=== PATIENT | female | born 1940 | race Caucasian/White ===

== ENCOUNTER 2016-10-21 08:58 | Day surgery (SDC) | payer MEDICARE, OTHER ==
[~2016-10-21 08:58] MED LIST: ACIPHEX PO; ALBUTEROL0.63 MG/3 INH; ALEGRA; ALLEGRA180 PO; ASAB PO; ASAEC; ASAEC PO; ASTEPRO0.15 % NAS; ATRONASAL3 NAS; ATV.5; ATV.5 PO; AUG875; BREO ELLIPTA INH; CALCIUM PO; CARASPUDL PO; CENTRUM TAB1 TAB PO; CITRACAL PO; CLARIT10 PO; CO Q-10100 MG PO; CO Q-10200 MG PO; COMBIVENT INH; COZ50 PO; CRESTOR5 MG PO; DEXILANT; DIOVAN HCT160 MG/25 PO; ESTRACE VAG0.1 MG/GM; ESTRACE VAGIN42.5 GM V; FIORINALC; FIORINALC PO; FLORASTOR250 MG PO; HALF81 PO; IMDUR30 PO; INCRUSE INH; KAPIDEX60 MG PO; KLOR-CON M2020 MEQ PO; L-LYSINE ACE500 MG PO; L-LYSINE1000 MG OR; L-LYSINE500 M1 OR; LEVAQUIN5T PO; LEVAQUIN750 MG PO; LEVOTHROID75 MCG PO; LEVOTHYROXIN50 MCG PO; LEVOTHYROXIN75 MCG PO; LEXAPRO10 PO; LIPITOR40 PO; MCZ125 PO; MCZ25 PO; MIRALAX POWDER1 PKT PO; MIRALAXPKT PO; MUCO20%4ML; NASONEX NAS; NORV5 PO; P20 PO; P5 PO; PEP20 PO; PEPCID40 MG OR; PRIN5 PO; PROAIR HFA INH; PROAIRRESP INH; PROTONIX PO; PROVHFA INH; RECLAST IV; REG5 PO; SINGULAIR1 PO; SPIRIVA INH; SYMBICORT 160/41 INH INH; SYMBICORT 80/4.1 INH INH; SYN.05 PO; SYN075 PO; TESS PO; TESSALON200 MG PO; TOPAMAX100 PO; TOPAMAX25 PO; VITAMIN D1000 UNI1 PO; VITAMIN D2000 UNIT PO; VITAMIN D31000 UNIT PO; VYTORIN 10/20 T1 TAB PO; X25 PO; ZOVI200CAP PO; ZYRTEC ALLGY10 MG PO
[2016-10-21 09:17] LABS: BASOPHILS 0.2 %; BASOPHILS ABSOLUTE 0.01 10/3/uL (0.0-0.16); EOSINOPHILS 0.3 %; EOSINOPHILS ABSOLUTE 0.02 10/3/uL (0.0-0.53); HEMATOCRIT 42.6 % (36.0-48.0); HEMOGLOBIN 13.9 g/dL (12.0-16.0); IMMATURE GRANULOCYTES 0.5 %; IMMATURE GRANULOCYTES ABSOLUTE 0.03 10/3/uL (0.0-0.11); LYMPHOCYTES 18.8 %; LYMPHOCYTES ABSOLUTE 1.15 10/3/uL (0.67-4.30); MEAN CORPUSCULAR HEMOGLOB 28.6 pg (26.0-34.0); MEAN PLATELET VOLUME 9.1 fL (9.2-13.0); MONOCYTES 13.2 %; MONOCYTES ABSOLUTE 0.81 10/3/uL (0.21-1.20); PLATELET COUNT 230 10/3/uL (150-400); RBC DISTRIBUTION WIDTH 14.6 % (12.0-16.0); RED CELL COUNT 4.86 10/6/uL (4.0-5.6); WHITE BLOOD CELLS 6.1 10/3/uL (4.5-10.5)
[2016-10-21 09:19] LABS: MANUAL DIFF NO %; MEAN CORPUS HGB CONC 32.6 g/dL (32.0-36.0); MEAN CORPUSCULAR VOLUME 87.7 fL (80-100)
[2016-10-21 09:24] LABS: PARTIAL THROMBO TIME 26.5 SEC (22.5-37.2); PROTIME (NOT ORD) 13.2 SEC (12.0-14.5)
[2016-10-21 09:31] LABS: BUN (BLOOD UREA NITROGEN) 17 MG/DL (6-23); CALCIUM, SERUM 8.3 MG/DL (8.5-10.4); CHLORIDE, SERUM 110 MMOL/L (96-112); CO2 (CARBON DIOXIDE) 25 MMOL/L (24-34); CREATININE 1.09 MG/DL (0.55-1.02); GFR AFRICAN AMERICAN 57 ML/MIN (>=60); GFR NON AFRICAN AMERICAN 49 ML/MIN (>=60); GLUCOSE, SERUM 85 MG/DL (60-99); POTASSIUM, SERUM 4.1 MMOL/L (3.5-5.3); SODIUM, SERUM 143 MMOL/L (135-148)
[2016-12-31] MEDS ORDERED: ZOFRAN4 PO (15:17)
[2016-12-31] MEDS ORDERED: PROTONIX PO (15:18)
[2016-12-31] MEDS ORDERED: COZ50 PO (15:23)
== END 2016-10-21 23:59 | disposition home or self-care (01) ==
LOC: DMU 08:58
PROVIDERS: Anesthesiology
DX: Z53.9 Procedure and treatment not carried out, unspecified reason (principal); F03.90 Unspecified dementia, unspecified severity, without behavioral disturbance, psychotic disturbance, mood disturbance, and anxiety; E03.9 Hypothyroidism, unspecified; I10 Essential (primary) hypertension; I25.10 Atherosclerotic heart disease of native coronary artery without angina pectoris; J44.9 Chronic obstructive pulmonary disease, unspecified; J45.909 Unspecified asthma, uncomplicated; M19.90 Unspecified osteoarthritis, unspecified site; K21.9 Gastro-esophageal reflux disease without esophagitis; K58.9 Irritable bowel syndrome, unspecified; M79.7 Fibromyalgia; G43.909 Migraine, unspecified, not intractable, without status migrainosus; K44.9 Diaphragmatic hernia without obstruction or gangrene; F41.9 Anxiety disorder, unspecified; Z90.5 Acquired absence of kidney; Z98.890 Other specified postprocedural states; Z90.710 Acquired absence of both cervix and uterus
CPT/HCPCS: 80048; 85025; 85610; 85730; 93005

== ENCOUNTER 2016-10-27 08:02 | Day surgery (SDC) | payer MEDICARE, OTHER ==
--- NOTE | ~2016-10-27 | EGD ---
EGD REPORT [facility] [address] [address] NAME: HEATHER RODRIGUEZ : 40 STATUS : REG [facility]#: [id number] AGE: 76 ADM/REG DATE : 10/27/16 MR#: [id number] REPORT SERV DATE: 10/27/16 DICTATED BY: YOMAIRA STOCK DATE: 10/27/16 REPORT STATUS : Draft [facility]: [facility] DATE: 10/27/16 Pulmonology Patient Name: Heather Rodriguez Procedure Date: 10/27/2016 11:02 AM Date of : 1940 Attending MD: GLO STOCK MD Procedure Date No Time: 10/27/2016 Procedure: Flexible rigid bronchoscopy Indications: History of lower respiratory tract infection, stent removal Providers: GLO STOCK MD Referring MD: GLO STOCK MD Medicines: Lidocaine 2% 20 mL Complications: No immediate complications Procedure: Pre-Anesthesia Assessment: - ASA Grade Assessment: IV - A patient with severe systemic disease that is a constant threat to life. - A History and Physical has been performed. Patient meds and allergies have been reviewed. The risks and benefits of the procedure and the sedation options and risks were discussed with the patient. All questions were answered and informed consent was obtained. Patient identification and proposed procedure were verified prior to the procedure by the physician and the nurse in the pre-procedure area in the procedure room. Mental Status Examination: normal. Airway Examination: normal oropharyngeal airway. Respiratory Examination: clear to auscultation and poor air movement. CV Examination: normal and RRR, no murmurs, no S3 or S4. ASA Grade Assessment: III - A patient with severe systemic disease. After reviewing the risks and benefits, the patient was deemed in satisfactory condition to undergo the procedure. The anesthesia plan was to use general anesthesia. Immediately prior to administration of medications, the patient was re-assessed for adequacy to receive sedatives. The heart rate, respiratory rate, oxygen saturations, blood pressure, adequacy of pulmonary ventilation, and response to care were monitored throughout the procedure. The physical status of the patient was re-assessed after the procedure. After obtaining informed consent, the Bronchoscope was introduced through the mouth, via the endotracheal tube (the patient was intubated for the procedure) and advanced to the tracheobronchial tree. The procedure was accomplished without difficulty. The patient EGD REPORT [place] [id number] [facility] [place]. [address] NAME: HEATHER RODRIGUEZ FIELDPINA : 40 STATUS : REG [facility]#: [id number] AGE: 76 ADM/REG DATE : 10/27/16 MR#: [id number] REPORT SERV DATE: 10/27/16 DICTATED BY: YOMAIRA STOCK DATE: 10/27/16 REPORT STATUS : Draft TRANSCRIBED BY: [employer] DATE: 10/27/16 tolerated the procedure well. Findings: The endotracheal tube is in good position. The visualized portion of the trachea is of normal caliber. The giorgio is sharp. The tracheobronchial tree was examined to at least the first subsegmental level. LIAM/RBI stent noted with slight overgrowth at the proximal edge. See pictures. Endobronchial lesion noted in the distal right trachea. An endobronchial biopsy was performed in the trachea using a forceps and sent for histopathology examination. One sample was obtained. Brushings were obtained in the trachea and sent for routine cytology. One sample was obtained. Bronchoalveolar lavage was performed in the right lower lobe of the lung and sent for cell count, cytology, bacterial culture, viral smears \T\ culture, and fungal and AFB analysis. 60 mL of fluid were instilled. 30 mL were returned. The return was cellular. The patient was then reintubated with a Rigid Dumon 10 mm bronchoscope. Using the white handle forcep, the right mainstem and RBI silicone stent was grasped and partially intusscepted into the rigid scope. The rigid scope, white handle forceps and stent were removed en bloc. Patient was then reintubated with a LMA. The FiO2 was then lowered to less than 40% and argon plasma coagulation therapy (0.8 ml/min, 15 álvarez) was performed to the area of tissue overgrowth for destruction of tissue. Impression: LIAM/RLL customized silicone stent removed. Recommendation: - Await test results. - Follow up bronchoscopy in 1 month. - Patient can change mandatory nebulizer therapy (albuterol and mucomyst) to PRN only. Attending Participation: I personally performed the entire procedure. GLO STOCK MD 10/27/2016 12:04 PM This report has been signed electronically. Number of Addenda: 0 Note Initiated On: 10/27/2016 11:02 AM [address] [address]
--- NOTE | ~2016-10-27 | CN ---
Consultation Report [place] [address] [place] [address] [facility]: [facility] STAT[facility] : REG [facility] [place] PAT#: [id number] AGE: 76 ADM/REG DATE : 10/27/16 MR#: [id number] REPORT SERV DATE: 10/27/16 DICTATED BY: DAMARI STOCK DATE: 10/27/16 REPORT STATUS : Draft TRANSCRIBED BY: MODHeather DATE: 10/27/16 CONSULTATION DATE OF CONSULTATION: Dear Dr. Dulce Wilkinson: Ms. Heather Rodriguez is a pleasant 76-year-old female with a significant past medical history of right upper lobe adenocarcinoma, status post lobectomy in 2011, complicated by ischemic injury, bronchial stenosis, and staple migration, requiring long-term silicone stent placement, asthma, hypertension, peripheral vascular disease, and subclavian arterial stenosis, and coronary artery disease, who presents to [facility] for formal evaluation for possible stent removal. The patient's stent placement has been tolerated rather well. However, her course has been complicated by lower tract respiratory infections including a multidrug-resistant pseudomonas infection. After careful discussion with regard to the silicone stent placement, a decision was made to trial her without a stent. The patient states that she has continued productive cough that is chronic in nature, not unchanged, mild in nature, well localized to the chest, nonradiating with no significant alleviating or exacerbating factors. REVIEW OF SYSTEMS: A detailed 14-point review of systems was completed. Pertinent positives and negatives are listed above. PAST MEDICAL HISTORY: 1. Right upper lobe lobectomy in 2011, subsequent bronchial stent placement and removal, complicated by stent placement. 2. Asthma. 3. Hypertension. 4. PVD. 5. Carotid arterial stenosis bilaterally. 6. Left subclavian arterial stenosis. 7. Coronary artery disease. 8. Hiatal hernia. 9. GERD. 10.Anxiety. 11.Restless legs syndrome. 12.Migraines. PAST SURGICAL HISTORY: 1. Right upper lobe lobectomy. 2. Bronchial stent placement. Consultation Report [place] [id number] [facility] [place]. [address] NAME: HEATHER RODRIGUEZ : 40 STATUS : REG [facility] PAT#: [id number] AGE: 76 ADM/REG DATE : 10/27/16 MR#: [id number] REPORT SERV DATE: 10/27/16 DICTATED BY: MONTRELLDAMARI DATE: 10/27/16 REPORT STATUS : Draft TRANSCRIBED BY: JOS DATE: 10/27/16 3. Hysterectomy. 4. Trigger finger surgery. FAMILY HISTORY: Heart disease and breast cancer. SOCIAL HISTORY: The patient currently does not smoke, drink alcohol, or abuse illicit drugs. ALLERGIES: COMPAZINE, PHENERGAN, AMARYL, SULFA, CODEINE, OXYCODONE, CELEBREX, AND LEVAQUIN. HOME MEDICATIONS: Reviewed and located in the paper chart. PHYSICAL EXAMINATION: VITAL SIGNS: Reviewed and located in the paper chart. GENERAL: No acute distress. Able to communicate in full paragraphs at a time. HEENT: Normocephalic and atraumatic. Pupils are equal, round, and reactive to light and accommodation. Posterior oropharynx is clear. NECK: No JVD. No LAD. Trachea midline. CARDIOVASCULAR: Regular rate and rhythm. S1 and S2 present. LUNGS: Coarse bilateral breath sounds. ABDOMEN: Nontender. Nondistended. Soft. Positive bowel sounds. EXTREMITIES: No clubbing, cyanosis, or edema. SKIN: No new rashes, lesions, or ulcers. PSYCHIATRIC: Alert and oriented x3. Appropriate mood and affect. Appropriate insight and judgment. NEUROLOGIC: 5/5 strength in the upper and lower extremities. Cranial nerves 2 through 12 intact. Gait not tested. DTRs not performed. IMAGING: Chest x-ray, last performed on 09/08/2016, demonstrates no acute cardiopulmonary disease, status post right upper lobe lobectomy. ASSESSMENT AND PLAN: Ms. Heather Rodriguez is a pleasant 76-year-old female with a significant past medical history of right upper lobe lobectomy for lung cancer, complicated by severe ischemic injury and bronchial stenosis requiring a long-term bronchial stent placement, and stable migration. The patient's stent was placed on 10/14/2016 just over one year ago for severe right mainstem, right bronchial and intermedius bronchus stenosis secondary to prior ischemic injury and staple migration, status post a custom 9 x 30 mm [employer] silicone stent. The patient's course has been rather well tolerated, and complicated by several lower respiratory tract infections including a multidrug-resistant pseudomonas infection requiring outpatient IV antibiotic therapy. The patient has remained compliant with her bronchodilators. At this point, given the one-year interval, we will proceed with stent removal to trial her without the stent. The patient is aware that flexible rigid bronchoscopy and stent removal are associated with potential life-threatening complications including lung collapse, life-threatening bleeding, airway perforation, and even ; other potential injuries including injury to the mouth, Consultation Report [place] [id number] [address] NAME: HEATHER RODRIGUEZ : 40 STATUS : REG [facility] [place] PAT#: [id number] AGE: 76 ADM/REG DATE : 10/27/16 MR#: [id number] REPORT SERV DATE: 10/27/16 DICTATED BY: DAMARI STOCK DATE: 10/27/16 REPORT STATUS : Draft TRANSCRIBED BY: JOS DATE: 10/27/16 lips, teeth, gums, posterior oropharynx, airway fire, and injury to the neighboring organs including C-spine fracture. RECOMMENDATIONS: A summary of my recommendations is as follows: 1. Remove 9 x 30 mm customized [employer] silicone stent. 2. Follow up in one month with repeat bronchoscopy. 3. Further recommendations will be outlined in the operative report. 4. Follow up with Dr. Dulce Wilkinson. Thank you for allowing me to participate in Ms. Rodriguez's care. Sincerely, TALA/JOS Damari Stock M.D. / [id number] CC: Chacho Williamson M.D.
[2016-10-27 17:47] LABS: BD FL LYMPH (NOT ORD) 3 %; BF BASO (NOT OF) 0 %; BF LARGE MONONUCLEAR 14 %; BODY FLUID EOS (NOT ORD) 0 %; BODY FLUID SEG (NOT ORD) 83 %
[2016-10-27 17:48] LABS: BD FL SOURCE (NOT ORD) RLL-BAL; BF TOTAL CELL CT (NOT ORD 668 /MM3; BODY FLUID RBC (NOT ORD) 6000 /MM3
[2016-12-31] MEDS ORDERED: ZOFRAN4 PO (15:17)
[2016-12-31] MEDS ORDERED: PROTONIX PO (15:18)
[2016-12-31] MEDS ORDERED: COZ50 PO (15:23)
== END 2016-10-27 23:59 | disposition home or self-care (01) ==
LOC: DMU 08:02
PROVIDERS: Internal Medicine
PROC: 0BB18ZX Excision of Trachea, Via Natural or Artificial Opening Endoscopic, Diagnostic (ICD-10-PCS; 2016-10-27)
PROC: 0BB18ZX Excision of Trachea, Via Natural or Artificial Opening Endoscopic, Diagnostic (ICD-10-PCS; principal; 2016-10-27 09:30)
PROC: 0B9F8ZX Drainage of Right Lower Lung Lobe, Via Natural or Artificial Opening Endoscopic, Diagnostic (ICD-10-PCS; 2016-10-27 09:30)
PROC: 0BCF8ZZ Extirpation of Matter from Right Lower Lung Lobe, Via Natural or Artificial Opening Endoscopic (ICD-10-PCS; 2016-10-27 09:30)
PROC: 0BC58ZZ Extirpation of Matter from Right Middle Lobe Bronchus, Via Natural or Artificial Opening Endoscopic (ICD-10-PCS; 2016-10-27 09:30)
DX: J98.09 Other diseases of bronchus, not elsewhere classified (principal); J44.1 Chronic obstructive pulmonary disease with (acute) exacerbation; J45.909 Unspecified asthma, uncomplicated; I10 Essential (primary) hypertension; I73.9 Peripheral vascular disease, unspecified; I25.10 Atherosclerotic heart disease of native coronary artery without angina pectoris; K44.9 Diaphragmatic hernia without obstruction or gangrene; K21.9 Gastro-esophageal reflux disease without esophagitis; F41.9 Anxiety disorder, unspecified; G25.81 Restless legs syndrome; G43.909 Migraine, unspecified, not intractable, without status migrainosus; Z90.710 Acquired absence of both cervix and uterus; Z88.2 Allergy status to sulfonamides; Z88.5 Allergy status to narcotic agent; Z88.8 Allergy status to other drugs, medicaments and biological substances; Z90.89 Acquired absence of other organs
CPT/HCPCS: 71010; 80048; 85025; 85610; 85730; 87015; 87070; 87077; 87102; 87116; 87186; 87205; 88112; 88305; 88312; 89051; A9270-GY; C1757; J2405; J3010

== ENCOUNTER 2016-10-29 15:46 | Inpatient (IN) | payer MEDICARE, OTHER ==
--- NOTE | ~2016-10-29 | CN ---
Consultation Report [facility] [address] [place]. [address] NAME: HEATHER RODRIGUEZ : 40 STATUS : ADM IN PAT#: [id number] AGE: 76 ADM/REG DATE : 10/29/16 MR#: [id number] REPORT SERV DATE: 10/30/16 DICTATED BY: COSME PRESTON DATE: 10/30/16 REPORT STATUS : Draft TRANSCRIBED BY: MODL DATE: 10/30/16 INFECTIOUS DISEASE CONSULT DATE OF CONSULTATION: 10/30/2016 REASON FOR CONSULT: Pseudomonas in bronchial secretions and "fungus ball" in the trachea or tracheal wall. HISTORY OF PRESENT ILLNESS: This is a 76 years old white lady with history of asthma who was diagnosed with right upper lobe adenocarcinoma in 2011. She had a right upper lobe lobectomy at [place], complicated by ischemic injury of the right airway or bronchial tree. That left her with bronchial stenosis. Stent was put in the past and was changed later to a silicone stent. The stent apparently was tolerated well but she had recurrent respiratory infections with Pseudomonas. I noticed sputum culture in July of this year as well as in March of last year that grew Pseudomonas. In July, this was resistant to Cipro and had GWYN of 8 to cefepime but it was sensitive to Zosyn, aztreonam, tobramycin, and gentamicin. I noticed that in July 2015, she had a bronchoscopy where a "staple line migration" was noted. At the time of the bronchoscopy, there is a right upper lobe endobronchial lesion that on biopsy showed fungal organisms consistent with Aspergillus. In October 2015 also, bronchoscopy was done, and a cytology or pathology from "staple debris" also showed Aspergillus like organisms. She had endoscopy on 27 of October so few days ago for stent removal. Dr. Gaona noticed an endobronchial lesion in the distal right trachea that he biopsied by forceps. He also performed a right lower lobe bronchoalveolar lavage and removed the stent. The BAL culture grew 10,000 colonies of Pseudomonas with same sensitivities resistant to Cipro and the cefepime GWYN of 8. The cytology was negative for malignancy. The white blood cell count was 668 with 83% segments. This endobronchial "node" biopsy showed a "fungus ball." I discussed with Dr. Vanegas in Pathology and she tells me all that sees, there is fungus that looks like Aspergillus but there is no other airway wall tissue so there is no way to tell if there is any invasion, vascular invasion. Unfortunately, she presented last night with a completely collapsed remaining right lung, mediastinal shift. The patient is hard of hearing, and it is hard to tell if she had any acute symptoms. She presented with shortness of breath. She states she never had a fever. It is unclear if she had any progressive cough or sputum production. She has not had any chills. She has problems with constipation and acid reflux or gastroesophageal reflux. No acute urinary symptoms although she urinates frequently. A CT scan showed a right lung collapse and hyperinflation of the left lung with mediastinal shift to the right. Consultation Report [facility] [address] [facility] [place]. [address] NAME: HEATHER RODRIGUEZ : 40 STATUS : ADM IN [facility]#: [id number] AGE: 76 ADM/REG DATE : 10/29/16 MR#: [id number] REPORT SERV DATE: 10/30/16 DICTATED BY: COSME PRESTON DATE: 10/30/16 REPORT STATUS : Draft TRANSCRIBED BY: JOS DATE: 10/30/16 Lab work showed a procalcitonin of less than 0.05. ABGs; PO2 was 55, saturation 97% but cannot tell on how much oxygen. She was started on aztreonam and vancomycin. This morning, she had a bronchoscopy, and a new silicone stent was placed in the right mainstem bronchus. Dr. Gaona describes debulking some tissue and granulation tissue overlying the right middle lobe bronchus. There are some thick secretions there. He did a BAL from the right lower lobe and dilatation of the right main stem before the stent placement. Lab work today creatinine 0.7. Liver enzymes within normal limits. WBC 7 down from 11 yesterday. PAST MEDICAL HISTORY: As I mentioned above plus hypertension, peripheral vascular disease with carotid disease and subclavian vein stenosis, coronary artery disease, migraine headaches, restless legs. She has a history of asthma, and she follows with Dr. Mcmillan who is an tip inserter. Apparently, she has some immune-deficiency, and she is supposed to get some kind of medications but she could not remember the name. We tried to get records from Dr. Mcmillan but that is not possible until next week. Also hysterectomy. She has oral mucosa lichen planus but she does not know what treatment she received for it. It sounds like it is some topical treatment. FAMILY HISTORY: Cancer and heart disease. SOCIAL HISTORY: She quit smoking. Lives alone with the help of a sitter. ALLERGIES: SULFA CAUSED TONGUE SWELLING. SHE STATES LEVAQUIN CAUSED THE RASH BUT ONLY THE 750 MG TABLETS. SHE STATES THAT THE 250 AND 500 MG TABLETS ARE OKAY. MEDICATIONS: At admission according to the chart, topiramate, levothyroxine, Symbicort, aspirin, Crestor, Singulair, Lexapro prednisone 5 mg a day, albuterol, isosorbide extended release, butalbital as needed, meclizine as needed, losartan, amlodipine, Protonix, lorazepam as needed, and Pepcid. PHYSICAL EXAMINATION: GENERAL: On exam, she is small, hard of hearing. Alert. She coughs frequently. She has some hemoptysis. LUNGS: With decreased sounds throughout but no real wheezing or crackling. HEART: Regular rhythm. ABDOMEN: Soft. SKIN: With some bruising. Consultation Report [address] [place]. [address] NAME: HEATHER RODRIGUEZ : 40 STATUS : ADM IN [facility]#: [id number] AGE: 76 ADM/REG DATE : 10/29/16 MR#: [id number] REPORT SERV DATE: 10/30/16 DICTATED BY: COSME PRESTON DATE: 10/30/16 REPORT STATUS : Draft TRANSCRIBED BY: JOS DATE: 10/30/16 HEENT: Oral mucosa with large red patches on the left lateral and posterior. IMAGING: CT of the chest with this admission collapsed right lung, but no infiltrate in the left lung. ASSESSMENT AND PLAN: 1. The patient with right upper lobe lobectomy for adenocarcinoma, right mainstem stenosis previously requiring a stent and history of asthma on chronic low-dose prednisone who was admitted with right lung complete atelectasis. She had a bronchoscopy and a new stent placed today. 2. 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 3. She has an endotracheal "node" which on biopsy shows a "fungus ball." Unfortunately, the biopsy sample does not include the underlying tracheal wall tissues so cannot really evaluate for invasive fungus disease. Also, there is no infiltrate in the left lung. 4. Possible immunodeficiency. We will try to get records from Dr. Mcmillan. 5. Gastroesophageal reflux and history of hiatal hernia. The Pseudomonas colony count was low. It appears that she is colonized in her airway with this organism. I do not think we have clear evidence of acute infection from it. However, given the recent bronchoscopies, removal of old stent, placement of new stent I think we should give antibiotics at this time. More cultures were obtained today, and those are obviously pending. She is already on aztreonam which we will continue for the Pseudomonas. We will add voriconazole for this Aspergillus although again we do not have proof of invasive disease, and we will try to see if we can obtain more information. In order to try to prevent future infections, I discussed with the patient and her daughter about ways to prevent gastroesophageal reflux. I asked her to sit up for 2-3 hours after eating, drinking, or taking medications and not to sleep with her bed flat or after drinking or eating. Also, I would suggest improving clearance of respiratory secretions and that might include Mucomyst but also postural drainage. Decrease immunosuppression if possible by taking IV immunoglobulins if needed and maybe try to taper off or decrease the chronic prednisone dose. In the future, one could consider using inhaled antibiotics such as tobramycin or aztreonam for treatment of bronchial infections instead of taking systemic antibiotics. I discussed with the patient, her daughter, and discussed with Dr. Gibson. PC/JOS Cosme Preston M.D. Consultation Report [address] [address] NAME: HEATHER RODRIGUEZ : 40 STATUS : ADM IN [facility]#: [id number] AGE: 76 ADM/REG DATE : 10/29/16 MR#: [id number] REPORT SERV DATE: 10/30/16 DICTATED BY: COSME PRESTON DATE: 10/30/16 REPORT STATUS : Draft TRANSCRIBED BY: MODL DATE: 10/30/16 / [id number] CC: Chacho Pelletier M.D.
--- NOTE | ~2016-10-29 | CN ---
Consultation Report [facility] [address] [place]. [address] NAME: HEATHER RODRIGUEZ : 40 STATUS : ADM IN PAT#: [id number] AGE: 76 ADM/REG DATE : 10/29/16 MR#: [id number] REPORT SERV DATE: 10/30/16 DICTATED BY: DAMARI STOCK DATE: 10/29/16 REPORT STATUS : Draft TRANSCRIBED BY: MODL DATE: 10/29/16 CONSULTATION REPORT DATE OF CONSULTATION: Dear Dr. Criselda Gibson: Thank you for requesting my opinion regarding evaluation and management of Ms. Heather Rodriguez's respiratory failure, status post stent removal. Ms. Heather Rodriguez is an extremely pleasant 76- year-old female, well known to me with a significant past medical history of right upper lobe adenocarcinoma, status post lobectomy at [facility] in 2011 complicated by right mainstem and right bronchus intermedius ischemic injury, bronchial stenosis, staple migration requiring long-term silicon stent placement, status post removal on 10/27/2016, asthma, hypertension, peripheral vascular disease, and subclavian artery stenosis who presents to [facility] with worsening shortness of breath, dyspnea on exertion, and hypoxic respiratory failure. The patient is now sedated on Precedex and is unable to participate in the exam. Cesar, her harness preparer, states that she was initially improved postprocedure, but over the past 24 to 48 hours, became increasingly short of breath, dyspneic, and anxious to the point that she found it difficult to even walk a few steps. The patient has recently been evaluated by the Critical Care Team by Dr. Criselda Gibson and I have been requested to evaluate her for possible emergent procedure and triage planning. REVIEW OF SYSTEMS: A detailed 14-point review of systems could not be completed due to the patient's sedation on Precedex. PAST MEDICAL HISTORY: 1. Right upper lobe lobectomy in 2011 and subsequent bronchial stent placement and removal. 2. Asthma. 3. Hypertension. 4. Peripheral vascular disease. 5. Carotid arterial stenosis bilaterally. 6. Left subclavian arterial stenosis. 7. Coronary artery disease. 8. Hiatal hernia. 9. GERD. 10.Anxiety. 11.Restless legs syndrome. 12.Migraines. PAST SURGICAL HISTORY: 1. Right upper lobe lobectomy, multiple flexible rigid bronchoscopies for bronchial stent placement and recent removal on 10/27/2016. Consultation Report [place] [address] [place]. [address] NAME: HEATHER RODRIGUEZ : 40 STATUS : ADM IN [facility]#: [id number] AGE: 76 ADM/REG DATE : 10/29/16 MR#: [id number] REPORT SERV DATE: 10/30/16 DICTATED BY: DAMARI STOCK DATE: 10/29/16 REPORT STATUS : Draft TRANSCRIBED BY: JOS DATE: 10/29/16 2. Hysterectomy. 3. Trigger finger surgery. FAMILY HISTORY: Heart disease and breast cancer. SOCIAL HISTORY: The patient is a lifelong nonsmoker. She denies any significant history of alcohol or illicit drug abuse. ALLERGIES: COMPAZINE, PHENERGAN, AMARYL, SULFA, CODEINE, OXYCODONE, CELEBREX, AND LEVAQUIN. HOME MEDICATIONS: Reviewed and located in the paper chart. PHYSICAL EXAMINATION: VITAL SIGNS: Blood pressure 112/59, heart rate of 71, saturations of 94% on 40 liters on 100% FiO2 on Vapotherm. GENERAL: The patient is currently sedated, on Precedex, and able to respond to simple questions, but unable to participate in a lengthy discussion of these events preceding her arrival. The patient appears to be comfortable at this moment. HEENT: Normocephalic and atraumatic. Pupils are equal, round, and reactive to light and accommodation. Posterior oropharynx is clear. NECK: No JVD. No LAD. Trachea midline. CARDIOVASCULAR: Regular rate and rhythm. S1 and S2 present. LUNGS: Diminished breath sounds on the right. Dullness to percussion at the right base. ABDOMEN: Nontender, nondistended, and soft. Positive bowel sounds. EXTREMITIES: No clubbing, cyanosis, or edema. SKIN: No new rashes, lesions, or ulcers. PSYCHIATRIC: Sedated on Precedex. NEUROLOGIC: Moving all four extremities. LABORATORY DATA: BNP of 57.5. Chemistries: Creatinine of 0.99, sodium of 142, potassium 3.1, chloride of 110, bicarb of 24, BUN of 16, and creatinine of 0.99. CBC: White count of 11, hemoglobin of 14, and platelet count of 186. ABG demonstrates a pH of 7.4, PaCO2 of 32, PaO2 of 55 on an unclear amount of oxygen. BAL demonstrated 10,000 colonies of multidrug-resistant Pseudomonas. AFB cultures negative. BAL fluid demonstrates a neutrophilic predominance with 83% neutrophils and 14% mononuclear cells. Chest x-ray on 10/27/2016 was personally reviewed by me postprocedure that demonstrates no acute cardiopulmonary abnormality and status post stent removal with no pneumothorax. Repeat chest x-ray today on 10/29/2016 demonstrates significant volume loss with Consultation Report [place] [id number] [place]. [address] NAME: HEATHER RODRIGUEZ FIELDPINA : 40 STATUS : ADM IN PAT#: [id number] AGE: 76 ADM/REG DATE : 10/29/16 MR#: [id number] REPORT SERV DATE: 10/30/16 DICTATED BY: DAMARI STOCK DATE: 10/29/16 REPORT STATUS : Draft TRANSCRIBED BY: MODL DATE: 10/29/16 consolidation in the right lung and shift of the heart and mediastinum to the right. There are also chronic changes consistent with COPD and a tortuous aorta. Surgical clips are present along the right superior mediastinum consistent with a history of right upper lobe lobectomy in 2011. ASSESSMENT AND PLAN: Ms. Heather Rodriguez is an extremely pleasant 76-year-old female, well known to me with a significant past medical history of major complex airways disease, stemming from a right upper lobe lobectomy in 2011 complicated by severe ischemic injury and airway necrosis, status post multiple flexible rigid bronchoscopies with long-term airway silicone stenting and recent removal of a custom 9 x 30 mm [employer] silicone stent on 10/27/2016. The patient now presents with fulminant hypoxic respiratory failure and chest x-ray on 10/29/2016 demonstrated volume loss and consolidation in the right lung with shift of the heart and mediastinum to the right. The patient's bronchoscopy also demonstrated 10,000 colonies of multidrug-resistant Pseudomonas as well as an Aspergillus fungal nodule noted in the distal right aspect of the trachea. At this point, the patient will require aggressive medical optimization of her blood pressure and may require intubation. I agree with transfer to the Critical Care Service. In addition, I recommend the following to better delineate the underlying causes of her shortness of breath, optimize her medical status, and then we will re-evaluate for possible flexible rigid bronchoscopy and airway stentin. Start vancomycin and aztreonam first dose stat. 2. Pharmacy to dose. 3. I already (spoke with pharmacist, Terri, in the ED). 4. PICC line. 5. Stat CT scan of the chest with contrast. 6. N.p.o. after midnight. 7. ID consult for multidrug-resistant Pseudomonas and Aspergillus and airway nodules noted at the time of bronchoscopy. 8. If the patient requires flexible rigid bronchoscopy, I will speak with the power of school superintendent and coordinate the plan with the Critical Care Service. Flexible rigid bronchoscopy is associated with potential life-threatening risks, including lung collapse, respiratory failure, perforation of the airway and also injury to the mouth, lips, teeth, gums, posterior oropharynx, trachea, and the neighboring organs. Other potential possibilities include cardiopulmonary arrest and even . Thank you for allowing me to participate in Ms. Heather Rodriguez's care. TALA/JOS Damari Stock M.D. / [id number] Consultation Report [address] [address] NAME: HEATHER RODRIGUEZ : 40 STATUS : ADM IN [facility]#: [id number] AGE: 76 ADM/REG DATE : 10/29/16 MR#: [id number] REPORT SERV DATE: 10/30/16 DICTATED BY: DAMARI STOCK DATE: 10/29/16 REPORT STATUS : Draft TRANSCRIBED BY: JOS DATE: 10/29/16 CC: Chacho Pelletier M.D.
--- NOTE | ~2016-10-29 | EGD ---
EGD REPORT [facility] [address] [address] NAME: HEATHER RODRIGUEZ : 40 STATUS : ADM IN PAT#: [id number] AGE: 76 ADM/REG DATE : 10/29/16 MR#: [id number] REPORT SERV DATE: 10/30/16 DICTATED BY: YOMAIRA STOCK DATE: 10/30/16 REPORT STATUS : Draft TRANSCRIBED BY: [facility] DATE: 10/30/16 Pulmonology Patient Name: Heather Rodriguez Procedure Date: 10/30/2016 7:24 AM Date of : 1940 Attending MD: GLO STOCK MD Procedure Date No Time: 10/30/2016 Procedure: Flexible rigid bronchoscopy Indications: Right lung atalectasis s/p LIAM/RBI stent removal Providers: GLO STOCK MD Referring MD: MOON DENNIS MD Medicines: Lidocaine 2% 20 mL Complications: No immediate complications Procedure: Pre-Anesthesia Assessment: - A History and Physical has been performed. Patient meds and allergies have been reviewed. The risks and benefits of the procedure and the sedation options and risks were discussed with the patient. All questions were answered and informed consent was obtained. Patient identification and proposed procedure were verified prior to the procedure by the physician and the nurse in the pre-procedure area in the procedure room. Mental Status Examination: normal. Airway Examination: normal oropharyngeal airway. Respiratory Examination: poor air movement and decreased breathe sounds at right base, but otherwise clear. CV Examination: normal and RRR, no murmurs, no S3 or S4. ASA Grade Assessment: IV - A patient with severe systemic disease that is a constant threat to life. After reviewing the risks and benefits, the patient was deemed in satisfactory condition to undergo the procedure. The anesthesia plan was to use general anesthesia. Immediately prior to administration of medications, the patient was re-assessed for adequacy to receive sedatives. The heart rate, respiratory rate, oxygen saturations, blood pressure, adequacy of pulmonary ventilation, and response to care were monitored throughout the procedure. The physical status of the patient was re-assessed after the procedure. - ASA Grade Assessment: IV - A patient with severe systemic disease that is a constant threat to life. After obtaining informed consent, the Bronchoscope was introduced through the mouth, via the endotracheal tube (the patient was intubated for the procedure) and advanced to the tracheobronchial tree. The procedure was accomplished without difficulty. The patient EGD REPORT [address] [address] NAME: HEATHER RODRIGUEZ : 40 STATUS : ADM IN [facility]#: [id number] AGE: 76 ADM/REG DATE : 10/29/16 MR#: [id number] REPORT SERV DATE: 10/30/16 DICTATED BY: YOMAIRA STOCK DATE: 10/30/16 REPORT STATUS : Draft TRANSCRIBED BY: [facility] DATE: 10/30/16 tolerated the procedure well. Findings: The endotracheal tube is in good position. The visualized portion of the trachea is of normal caliber. The giorgio is sharp. Previous nodularity along the distal right trachea was not noted. The tracheobronchial tree was examined to at least the first subsegmental level. There was auto-amputation of LIAM/RBI obstruction. Using swing jaw forceps and carlos balloon number 4, I debulked necrotic appearing tissue and granulation tissue overlying the LIAM. Therapeutic aspiration of thick secretions was performed. Bronchoalveolar lavage was performed in the right lower lobe of the lung and sent for cell count, cytology, bacterial culture, viral smears \T\ culture, and fungal and AFB analysis. 120 mL of fluid were instilled. 30 mL were returned. The return was cellular. Brushings were obtained in the right mainstem bronchus of the lung and sent for routine cytology and bacterial, AFB and fungal analysis. Two samples were obtained. The FiO2 was lowered to less than 40% and I performed micro-cautery cuts at 8 and 9 o clock. Using the CRE balloon 02-10-10, the LIAM/RBI was dilated to 9 mm OD. The patient was then reintubated with a 10 mm Rigid Dumon forcep in the usual atraumatic fashion and selectively advanced into the LIAM. A custom [employer] 9 x 20 mm silicone stent was successfully deployed into the LIAM/RBI. The LIAM/RBI are now widely patent. Impression: Custom [employer] 9 x 20 mm silicone stent was placed in the LIAM/RBI Recommendation: - Await test results. - Appreciate Dr. Antonio and Dr. Galloway's assistance. - Mandatory nebulizers: Mucomyst and albuterol Attending Participation: I personally performed the entire procedure. GLO STOCK MD 10/30/2016 10:46 AM This report has been signed electronically. Number of Addenda: 0 Note Initiated On: 10/30/2016 7:24 AM [address] [address]
--- NOTE | ~2016-10-29 | DS ---
Discharge Summary [address] [place]. [address] NAME: HEATHER RODRIGUEZ : 40 STATUS : DIS IN PAT#: [id number] AGE: 76 ADM/REG DATE : 10/29/16 MR#: [id number] REPORT SERV DATE: 11/04/16 DICTATED BY: BUCK TABOR DATE: 11/03/16 REPORT STATUS : Draft TRANSCRIBED BY: MODL DATE: 11/03/16 ADMISSION DATE: 10/29/2016 DISCHARGE DATE: 11/03/2016 Date of discharge, per patient request, discharged home, 11/03/2016. HOSPITAL COURSE: This is a 76-year-old female with known history of asthma, had a right upper lobe adenocarcinoma in 2011, required lobectomy at [facility], complicated by ischemic injury, right airway, bronchial tree, stenosis right mainstem. In the past, a stent was placed. Was changed later to a silicone stent. At that time, the stent was tolerated well. She had on 07/2015, a bronchoscopy where a "staple line migration" was noted. An Aspergillus organism was seen. She had a bronchoscopy on 10/27/[address] Gaona noticed endobronchial lesion in the distal right trachea. A biopsy by forceps with right lower lobe BAL with removal of the stent. BAL grew 10,000 colonies of Pseudomonas, same sensitivities as being resistant to Cipro and cefepime. Cytology negative for malignancy. However, she had endobronchial node biopsy showing a fungus ball. Fungus looks like Aspergillus. Did not appear that there is any way to tell if there is any invasion of vascular invasion of the airway wall tissue. Then, she presented on 10/29/2016 with right lung collapse, hyperinflation of the left lung, mediastinal shift to the right. Procal was normal. She was started on aztreonam and vancomycin. She had a bronchoscopy on 10/30/[address] Gaona with new silicone stent that was larger placed in the right mainstem bronchus. Dr. Gaona described debulking some tissue and granulation tissue overlying the right middle lobe bronchus with thick secretions with BAL. The patient, as a result, was seen by Dr. Gaona as well as Dr. Antonio and stated right complex pneumonia, asthma. As a result, the plan of care for this multidrug-resistant Pseudomonas and Aspergillus airway nodules noted at the time bronchoscopy. It was noted that the BAL on 10/30/2016 just showed sparse growth of Pseudomonas, the same culture report from prior, which thankfully was sensitive to aztreonam. The patient, as well, will get 10 more days of voriconazole and six more days of IV aztreonam q.8. PICC line has been placed. The patient wants to go home today. We will accommodate the patient if it is okay with ID and Dr. Gaona. She has a bit more hypertension. I am concerned about she is on Imdur 15 p.o. b.i.d. I could consider 60 p.o. daily. We will give p.r.n. hydralazine as an outpatient. Defer to PCP regarding the Imdur. In addition, give her some sodium bicarbonate for three more days regarding this mild acidosis. FOLLOWUP: The patient will follow up with Dr. Gaona in two to four weeks, PCP in two weeks as well. Likely will need a repeat bronchoscopy as an outpatient. We will defer to Dr. Gaona and his expertise. DISCHARGE MEDICATIONS: Will include Norvasc 5 p.o. daily, aspirin 81 p.o. daily as well as Crestor 5 p.o. daily as well as history of use of aztreonam 2 g IV q.8 for six days via PICC and discontinue the PICC, Colace 100 p.o. b.i.d.; Lexapro 10 p.o. daily as well as having Pepcid 40 p.o. b.i.d., Imdur 15 p.o. b.i.d., Nitrostat p.r.n. HOME MEDICATIONS: Synthroid 50 mcg p.o. Wednesday, Wednesday, , and Wednesday and then Discharge Summary [address] [place]. [address] NAME: HEATHER RODRIGUEZ CRUZ : 40 STATUS : DIS IN PAT#: [id number] AGE: 76 ADM/REG DATE : 10/29/16 MR#: [id number] REPORT SERV DATE: 11/04/16 DICTATED BY: BUCK TABOR DATE: 11/03/16 REPORT STATUS : Draft TRANSCRIBED BY: JOS DATE: 11/03/16 Synthroid 75 p.o. Wednesday, Wednesday, and Wednesday. Losartan was increased to 100 from 50 p.o. daily. Singulair 10 p.o. daily; multivitamin one tab p.o. daily; sodium bicarb 1300 p.o. b.i.d. for three more days; Topamax 50 p.o. b.i.d.; as well as voriconazole 200 p.o. b.i.d., see script from Dr. Antonio; prednisone 5 p.o. q.h.s.; albuterol 2.5 mg neb q.8 scheduled for duration antibiotic in addition to Mucomyst 20% 4 mL inhaled q.8 scheduled for duration antibiotic and then p.r.n. albuterol; Symbicort home dose; Crestor 5 p.o. q.h.s.; meclizine p.r.n.; Protonix 40 p.o. q.a.m. p.r.n.; Ativan p.r.n. as per the patient's home dose; Tessalon p.r.n.; hydralazine 25 p.o. t.i.d. p.r.n. systolic more than 170. Discharge home. Home health. Home PT. The patient would like a rolling walker. PT recommends if the patient wants. CONSULTS: ID, Medical ICU Dr. Criselda Gibson as well as Dr. Antonio with Infectious Disease. DISCHARGE DIAGNOSES: Complicated pneumonia with fungus ball Aspergillus, Pseudomonas right mainstem with right lung field atelectasis and right mainstem stenosis requiring increased size of silicone stenting by Dr. Gaona, history of asthma, hypertension, acidosis, hyperlipidemia. All questions were answered. Took well over 30 minutes to do. ANNA/JOS Buck Tabor DO / [id number] CC: DO Yuly Brian M.D.
--- NOTE | ~2016-10-29 | HP ---
History And Physical [id number] [place]. [address] NAME: HEATHER RODRIGUEZ : 40 STATUS : ADM IN [facility]#: [id number] AGE: 76 ADM/REG DATE : 10/29/16 MR#: [id number] REPORT SERV DATE: 10/29/16 DICTATED BY: MOON GIBSON DATE: 10/29/16 REPORT STATUS : Draft TRANSCRIBED BY: MODL DATE: 10/29/16 DATE OF ADMISSION: 10/29/2016 This is a 76-year-old patient of Dr. Gaona. She has a known history of right upper lobe adenocarcinoma status post lobectomy in 2011 complicated by ischemic injury, bronchial stenosis, and staple migration requiring long-term silicone stent placement. The patient recently had a stent removed from her right bronchus and now returns with sudden onset of shortness of breath and back pain or chest wall pain that is pleuritic in nature. She was seen in the ER and it appears that the lung is now collapsed and she probably more than likely will require a stent. She currently is being admitted for overnight monitoring in the ICU in case she deteriorates any stent placement overnight. Dr. Gaona is aware of the patient. ALLERGIES: SHE HAS MULTIPLE DRUG ALLERGIES AND SO YOU WILL NEED TO LOOK AT THE MEDICAL RECONCILIATION NOTE; SOME OF THEM INCLUDE CELEBREX, LEVAQUIN, CODEINE, COMPAZINE, PHENERGAN, DEMEROL, OXYCODONE. HOME MEDICATIONS: Include metered dose albuterol inhaler; Norvasc 5 mg daily; aspirin 81 mg daily; Tessalon Perles 200 mg p.o. b.i.d. p.r.n.; Symbicort 160/4.5 two puffs twice a day; Fiorinal; Lexapro 10 mg at bedtime; Pepcid 40 mg with lunch and supper; Imdur 50 mg twice daily; Synthroid 50 mg Wednesday, Wednesday, , and Wednesday; Synthroid 75 mg Wednesday, Wednesday, and Wednesday; Ativan 0.125 mg at bedtime; Cozaar 50 mg p.o. daily; meclizine 12.5 to 25 mg q.6; Singulair 10 mg at bedtime; Nitrostat p.r.n.; Zofran 4 mg p.o. q.4 hours p.r.n.; Protonix 40 mg every morning; Deltasone 5 mg with supper; Crestor 5 mg at bedtime; Detrol 1-2 mg daily p.r.n.; and Topamax 50 mg p.o. b.i.d. PAST MEDICAL HISTORY: Includes: 1. Asthma. 2. Hypertension. 3. Peripheral vascular disease. 4. Subclavian arterial stenosis. 5. Coronary artery disease. 6. Peripheral vascular disease. 7. Hiatal hernia. 8. Gastroesophageal reflux disease. 9. Restless legs syndrome. 10.Migraines. 11.Anxiety. SURGICAL HISTORY: Significant for, 1. Right upper lobe lobectomy. 2. Bronchial stent placement. 3. Status post hysterectomy. 4. Trigger finger surgery. FAMILY HISTORY: Significant for heart disease and breast cancer. History And Physical [address] [address] NAME: HEATHER RODRIGUEZ : 40 STATUS : ADM IN [facility]#: [id number] AGE: 76 ADM/REG DATE : 10/29/16 MR#: [id number] REPORT SERV DATE: 10/29/16 DICTATED BY: MOON GIBSON DATE: 10/29/16 REPORT STATUS : Draft TRANSCRIBED BY: JOS DATE: 10/29/16 SOCIAL HISTORY: The patient has a remote history of smoking. There is no history of alcohol abuse or illicit drug use. The patient is . She has a sitter. REVIEW OF SYSTEMS: 12-point review of systems was done and is only significant for what is mentioned in the history of present illness. She has not had any hemoptysis, fevers, nausea, vomiting, or diarrhea. PHYSICAL EXAMINATION: GENERAL: The patient is extremely anxious, somewhat breathless. She is coughing up quite a bit of clear sputum, but she says this is normal for her. VITAL SIGNS: Blood pressure is 112/59, heart rate is 71, temperature is 97.6, O2 saturation now is 94% on Vapotherm. SKIN: Warm and dry. HEENT: Head is atraumatic and normocephalic. Pupils are equal, round, and reactive to light and accommodation. Extraocular eye movements are intact. Sclerae anicteric. Conjunctivae are pink. Nasal mucosa is within normal limits. Oral mucosa is moist. Tongue is midline. NECK: Supple without JVD, lymphadenopathy, or thyromegaly. CHEST: Exam shows only equal excursion, but she has pleuritic chest pain on deep inspiration. Her right lung sounds are diminished. There is no significant wheezing heard. Well-healed surgical scar from previous thoracotomy. ABDOMEN: Soft, nondistended. Bowel sounds are present but diminished. No organosplenomegaly is appreciated. EXTREMITIES: Without cyanosis, clubbing, or edema. NEUROLOGIC: Cranial nerves 2 through 12 are grossly intact. Motor and sensory are intact. Exam is nonfocal. Pulses are palpable and symmetrical. BNP is 57.5. Sodium 142, potassium 3.1, chloride 110, bicarbonate 24, BUN 16, creatinine 0.99, calcium 8.4, magnesium 2.5. Troponin is negative. White cell count is 11.7, hemoglobin is 14, hematocrit is 41, platelet count of 186,000. PTT and PT/INR within normal limits. Chest x-ray shows volume loss with consolidation in the right lung with a shift of the heart and mediastinum to the right. ABG shows a pH 7.4, pCO2 of 32, PO2 of 55, bicarbonate of 19, 87% saturation. The patient has previous known Pseudomonas that grew out of her sputum on 10/27/2016. No acid-fast bacteria seen. ASSESSMENT AND PLAN: This is a 76-year-old patient with status post lobectomy for adenocarcinoma of the right upper lobe, complicated by ischemic injury and bronchial stenosis, staple migration requiring long-term silicone stent. Stent has previously been removed a few days ago and now she has collapse of the right lung and is extremely anxious. Dr. Gaona is aware of the patient. The patient will be closely monitored in the ICU and may need intervention this evening. She will be kept n.p.o. and put on Vapotherm to maintain a sat of at least 90% to 95%. Precedex will be used for light sedation. The patient at this time is claustrophobic and is refusing BiPAP and even refusing intubation if she should get into respiratory distress. Things have been explained to her multiple times, but she is extremely anxious and we will try our best to work with the patient to at least History And Physical [address] [address] NAME: HEATHER RODRIGUEZ : 40 STATUS : ADM IN PAT#: [id number] AGE: 76 ADM/REG DATE : 10/29/16 MR#: [id number] REPORT SERV DATE: 10/29/16 DICTATED BY: MOON GIBSON DATE: 10/29/16 REPORT STATUS : Draft TRANSCRIBED BY: MODL DATE: 10/29/16 avoid intubation. We will hold DVT prophylaxis except for SCDs for now. She was continued on IV Protonix. Bronchodilator protocol will be ordered. Total critical care time spent with the patient was 45 minutes. Starting at 4:45 and ending at 5:30 p.m. The patient is in guarded condition and is at risk of respiratory failure, shock, infection, and bleeding. She requires close monitoring frequently. ABGs as needed. Hemodynamic monitoring. /MODHeather Moon Gibson M.D. / [id number] CC: Chacho Pelletier M.D.
[2016-10-29 15:22] LABS: ALLENS TEST Pos; BE (BASE EXCESS) -4.4 MEQ/L (0 +/- 2.5); CARBOXYHEMOGLOBIN 1.4 % (0-3); HCO3 (ACTUAL BICARBONATE) 19.3 MEQ/L (23-27); HEMOBLOGIN CONTENT 14.2 G/DL (12-16); INSTRUMENT SERIAL # 8087; METHEMOGLOBIN 0.3 % (0-3); O2 CONTENT 17.1 VOL% (18-24); PCO2 (CO2 TENSION) 32 MMHG (35-45); PO2 (O2 TENSION) 55 MMHG (79-93); SAMPLE Arterial
[2016-10-29 16:30] LABS: BASOPHILS 0.2 %; BASOPHILS ABSOLUTE 0.02 10/3/uL (0.0-0.16); EOSINOPHILS 0.3 %; EOSINOPHILS ABSOLUTE 0.04 10/3/uL (0.0-0.53); HEMATOCRIT 41.6 % (36.0-48.0); IMMATURE GRANULOCYTES 0.3 %; IMMATURE GRANULOCYTES ABSOLUTE 0.03 10/3/uL (0.0-0.11); LYMPHOCYTES 8.1 %; LYMPHOCYTES ABSOLUTE 0.94 10/3/uL (0.67-4.30); MEAN CORPUS HGB CONC 33.7 g/dL (32.0-36.0); MEAN CORPUSCULAR HEMOGLOB 29.4 pg (26.0-34.0); MEAN CORPUSCULAR VOLUME 87.4 fL (80-100); MEAN PLATELET VOLUME 9.2 fL (9.2-13.0); MONOCYTES 6.6 %; MONOCYTES ABSOLUTE 0.77 10/3/uL (0.21-1.20); NEUTROPHILS 84.5 %; NEUTROPHILS ABSOLUTE 9.87 10/3/uL (2.02-8.40); PLATELET COUNT 186 10/3/uL (150-400); RED CELL COUNT 4.76 10/6/uL (4.0-5.6)
[2016-10-29 16:31] LABS: ER CBC TAT 0 Hrs 05 Mins; MANUAL DIFF NO %; WHITE BLOOD CELLS 11.7 10/3/uL (4.5-10.5)
[2016-10-29 16:38] LABS: INTERNATIONAL NORMAL RATI 1.1 UNITS (-); PARTIAL THROMBO TIME 24.7 SEC (22.5-37.2); PROTIME (NOT ORD) 14.1 SEC (12.0-14.5)
[2016-10-29 16:46] LABS: BUN (BLOOD UREA NITROGEN) 16 MG/DL (6-23); CALCIUM, SERUM 8.4 MG/DL (8.5-10.4); CHEST PAIN PROFILE TAT 0 Hrs 20 Mins; CHLORIDE, SERUM 110 MMOL/L (96-112); CO2 (CARBON DIOXIDE) 24 MMOL/L (24-34); CREATININE 0.99 MG/DL (0.55-1.02); GFR AFRICAN AMERICAN 64 ML/MIN (>=60); GFR NON AFRICAN AMERICAN 55 ML/MIN (>=60); GLUCOSE, SERUM 85 MG/DL (60-99); POTASSIUM, SERUM 3.1 MMOL/L (3.5-5.3); SODIUM, SERUM 142 MMOL/L (135-148); TROPONIN I <0.02 NG/ML (<0.05)
[2016-10-29] MEDS ORDERED: TOPAMAX50 MG PO (19:00)
[2016-10-29] MEDS ORDERED: SYN.05 PO (19:01)
[2016-10-29] MEDS ORDERED: SYMBICORT 160/41 INH INH (19:02)
[2016-10-29] MEDS ORDERED: ASAB PO (19:02)
[2016-10-29] MEDS ORDERED: SYN075 PO (19:02)
[2016-10-29] MEDS ORDERED: P5 PO (19:03)
[2016-10-29] MEDS ORDERED: CRESTOR10 PO (19:03)
[2016-10-29] MEDS ORDERED: SINGULAIR1 PO (19:03)
[2016-10-29] MEDS ORDERED: LEXAPRO10 PO (19:03)
[2016-10-29] MEDS ORDERED: FIORINALC PO (19:04)
[2016-10-29] MEDS ORDERED: IMDUR30 PO (19:04)
[2016-10-29] MEDS ORDERED: PROAIR HFA INH (19:04)
[2016-10-29] MEDS ORDERED: NORV5 PO (19:05)
[2016-10-29] MEDS ORDERED: MCZ25 PO (19:05)
[2016-10-29] MEDS ORDERED: COZ50 PO (19:05)
[2016-10-29] MEDS ORDERED: ALBUTEROL0.083 % INH (19:06)
[2016-10-29] MEDS ORDERED: ATV.5 PO (19:06)
[2016-10-29] MEDS ORDERED: PROTONIX PO (19:06)
[2016-10-29] MEDS ORDERED: DETROL1 PO (19:07)
[2016-10-29] MEDS ORDERED: ZOFRAN4 PO (19:07)
[2016-10-29] MEDS ORDERED: TESSALON200 MG PO (19:07)
[2016-10-29] MEDS ORDERED: PEPCID40 MG PO (19:07)
[2016-10-29] MEDS ORDERED: NITROSTAT0.4 MG PO (19:08)
[2016-10-30 04:13] LABS: T4 (THYROXINE) TOTAL 12.8 MCG/DL (4.5-12.0)
[2016-10-30 05:39] LABS: BUN (BLOOD UREA NITROGEN) 18 MG/DL (6-23); CALCIUM, SERUM 7.7 MG/DL (8.5-10.4); CHLORIDE, SERUM 114 MMOL/L (96-112); CREATININE 0.78 MG/DL (0.55-1.02); GFR AFRICAN AMERICAN 86 ML/MIN (>=60); GFR NON AFRICAN AMERICAN 74 ML/MIN (>=60); SGOT(AST) 10 U/L (5-40); SGPT(ALT) 12 U/L (5-65); SODIUM, SERUM 143 MMOL/L (135-148); TOTAL BILIRUBIN 0.4 MG/DL (0-1.2); TOTAL PROTEIN 6.4 G/DL (6.0-8.5)
[2016-10-30 05:40] LABS: BASOPHILS 0 %; EOSINOPHILS 0 %; HEMATOCRIT 39.4 % (36.0-48.0); HEMOGLOBIN 13.1 g/dL (12.0-16.0); IMMATURE GRANULOCYTES 0.3 %; IMMATURE GRANULOCYTES ABSOLUTE 0.02 10/3/uL (0.0-0.11); LYMPHOCYTES 3.5 %; LYMPHOCYTES ABSOLUTE 0.25 10/3/uL (0.67-4.30); MEAN CORPUS HGB CONC 33.2 g/dL (32.0-36.0); MEAN CORPUSCULAR HEMOGLOB 28.9 pg (26.0-34.0); MEAN PLATELET VOLUME 9.6 fL (9.2-13.0); MONOCYTES 1.1 %; MONOCYTES ABSOLUTE 0.08 10/3/uL (0.21-1.20); NEUTROPHILS 95.1 %; NEUTROPHILS ABSOLUTE 6.87 10/3/uL (2.02-8.40); PLATELET COUNT 201 10/3/uL (150-400); RBC DISTRIBUTION WIDTH 14.9 % (12.0-16.0); RED CELL COUNT 4.53 10/6/uL (4.0-5.6); WHITE BLOOD CELLS 7.2 10/3/uL (4.5-10.5)
[2016-10-30 05:41] LABS: MANUAL DIFF NO %
[2016-10-30 05:54] LABS: A/G RATIO 0.8 (0.7-1.9); ALBUMIN 2.8 G/DL (3.5-5.0); ALKALINE PHOSPHATASE 51 U/L (45-117); CO2 (CARBON DIOXIDE) 19 MMOL/L (24-34); GLOBULIN 3.6 G/DL (2.5-4.1); GLUCOSE, SERUM 135 MG/DL (60-99); POTASSIUM, SERUM 4.4 MMOL/L (3.5-5.3)
[2016-10-30 09:10] LABS: PROCALCITONIN <0.05 ng/mL (<0.5)
[2016-10-30 14:47] LABS: BD FL LYMPH (NOT ORD) 2 %; BF BASO (NOT OF) 0 %; BF LARGE MONONUCLEAR 5 %; BODY FLUID EOS (NOT ORD) 0 %; BODY FLUID SEG (NOT ORD) 93 %
[2016-10-30 14:48] LABS: BD FL SOURCE (NOT ORD) BAL RT. MAIN STEM; BF TOTAL CELL CT (NOT ORD 14063 /MM3; BODY FLUID RBC (NOT ORD) 14000 /MM3
[2016-10-31 04:22] LABS: BASOPHILS 0 %; EOSINOPHILS 0 %; HEMATOCRIT 36.7 % (36.0-48.0); HEMOGLOBIN 12.3 g/dL (12.0-16.0); IMMATURE GRANULOCYTES 0.2 %; IMMATURE GRANULOCYTES ABSOLUTE 0.02 10/3/uL (0.0-0.11); LYMPHOCYTES ABSOLUTE 0.37 10/3/uL (0.67-4.30); MANUAL DIFF NO %; MEAN CORPUS HGB CONC 33.5 g/dL (32.0-36.0); MEAN CORPUSCULAR HEMOGLOB 29.2 pg (26.0-34.0); MEAN CORPUSCULAR VOLUME 87.2 fL (80-100); MEAN PLATELET VOLUME 9.3 fL (9.2-13.0); MONOCYTES 4.7 %; MONOCYTES ABSOLUTE 0.43 10/3/uL (0.21-1.20); NEUTROPHILS 91.1 %; NEUTROPHILS ABSOLUTE 8.37 10/3/uL (2.02-8.40); PLATELET COUNT 207 10/3/uL (150-400); RED CELL COUNT 4.21 10/6/uL (4.0-5.6); WHITE BLOOD CELLS 9.2 10/3/uL (4.5-10.5)
[2016-10-31 04:44] LABS: ALBUMIN 2.6 G/DL (3.5-5.0); ALKALINE PHOSPHATASE 45 U/L (45-117); BUN (BLOOD UREA NITROGEN) 18 MG/DL (6-23); CALCIUM, SERUM 7.3 MG/DL (8.5-10.4); CHLORIDE, SERUM 114 MMOL/L (96-112); CO2 (CARBON DIOXIDE) 21 MMOL/L (24-34); CREATININE 0.93 MG/DL (0.55-1.02); GFR AFRICAN AMERICAN 69 ML/MIN (>=60); GFR NON AFRICAN AMERICAN 60 ML/MIN (>=60); GLUCOSE, SERUM 140 MG/DL (60-99); SGOT(AST) 13 U/L (5-40); SGPT(ALT) 13 U/L (5-65); SODIUM, SERUM 145 MMOL/L (135-148); TOTAL BILIRUBIN 0.2 MG/DL (0-1.2); TOTAL PROTEIN 6.3 G/DL (6.0-8.5)
[2016-10-31 04:45] LABS: DIRECT BILIRUBIN < 0.1 MG/DL (0.0-0.4); INDIRECT BILIRUBIN(NOT ORDER) 0.1 MG/DL (0.1-0.9); PHOSPHORUS, SERUM 1.7 MG/DL (2.5-4.5)
[2016-10-31] MEDS ORDERED: HYDROCODONE PO (15:27)
[2016-10-31] MEDS ORDERED: HOMATROPINE PO (15:27)
[2016-10-31] MEDS ORDERED: BIOTENE PO (15:27)
[2016-10-31] MEDS ORDERED: MIRALAX POWDER1 PKT PO (15:28)
[2016-10-31] MEDS ORDERED: SYSTANE OPH (15:29)
[2016-11-01 07:24] LABS: BASOPHILS 0 %; EOSINOPHILS 0.1 %; EOSINOPHILS ABSOLUTE 0.01 10/3/uL (0.0-0.53); HEMATOCRIT 38.9 % (36.0-48.0); HEMOGLOBIN 12.6 g/dL (12.0-16.0); IMMATURE GRANULOCYTES 0.3 %; IMMATURE GRANULOCYTES ABSOLUTE 0.02 10/3/uL (0.0-0.11); LYMPHOCYTES 8.6 %; LYMPHOCYTES ABSOLUTE 0.58 10/3/uL (0.67-4.30); MEAN CORPUS HGB CONC 32.4 g/dL (32.0-36.0); MEAN CORPUSCULAR HEMOGLOB 28.7 pg (26.0-34.0); MEAN CORPUSCULAR VOLUME 88.6 fL (80-100); MEAN PLATELET VOLUME 9.3 fL (9.2-13.0); MONOCYTES 9.3 %; MONOCYTES ABSOLUTE 0.63 10/3/uL (0.21-1.20); NEUTROPHILS 81.7 %; NEUTROPHILS ABSOLUTE 5.54 10/3/uL (2.02-8.40); PLATELET COUNT 196 10/3/uL (150-400); RBC DISTRIBUTION WIDTH 15.8 % (12.0-16.0); RED CELL COUNT 4.39 10/6/uL (4.0-5.6); WHITE BLOOD CELLS 6.8 10/3/uL (4.5-10.5)
[2016-11-01 07:25] LABS: MANUAL DIFF NO %
[2016-11-01 07:35] LABS: CALCIUM, SERUM 7.6 MG/DL (8.5-10.4); CHLORIDE, SERUM 117 MMOL/L (96-112); CO2 (CARBON DIOXIDE) 20 MMOL/L (24-34); CREATININE 0.73 MG/DL (0.55-1.02); GFR AFRICAN AMERICAN 93 ML/MIN (>=60); GFR NON AFRICAN AMERICAN 80 ML/MIN (>=60); POTASSIUM, SERUM 3.5 MMOL/L (3.5-5.3); SODIUM, SERUM 146 MMOL/L (135-148)
[2016-11-01 07:36] LABS: BUN (BLOOD UREA NITROGEN) 11 MG/DL (6-23); GLUCOSE, SERUM 94 MG/DL (60-99)
[2016-11-01 09:31] LABS: PROCALCITONIN <0.05 ng/mL (<0.5)
[2016-11-02 05:33] LABS: BASOPHILS 0 %; EOSINOPHILS 0.1 %; EOSINOPHILS ABSOLUTE 0.01 10/3/uL (0.0-0.53); HEMATOCRIT 39.6 % (36.0-48.0); HEMOGLOBIN 13.1 g/dL (12.0-16.0); IMMATURE GRANULOCYTES 0.8 %; IMMATURE GRANULOCYTES ABSOLUTE 0.06 10/3/uL (0.0-0.11); LYMPHOCYTES ABSOLUTE 1.15 10/3/uL (0.67-4.30); MEAN CORPUS HGB CONC 33.1 g/dL (32.0-36.0); MEAN CORPUSCULAR VOLUME 87.6 fL (80-100); MEAN PLATELET VOLUME 9.2 fL (9.2-13.0); MONOCYTES 10.3 %; MONOCYTES ABSOLUTE 0.79 10/3/uL (0.21-1.20); NEUTROPHILS 73.8 %; NEUTROPHILS ABSOLUTE 5.65 10/3/uL (2.02-8.40); PLATELET COUNT 208 10/3/uL (150-400); RBC DISTRIBUTION WIDTH 15.3 % (12.0-16.0); RED CELL COUNT 4.52 10/6/uL (4.0-5.6); WHITE BLOOD CELLS 7.7 10/3/uL (4.5-10.5)
[2016-11-02 05:35] LABS: BUN (BLOOD UREA NITROGEN) 11 MG/DL (6-23); CHLORIDE, SERUM 114 MMOL/L (96-112); CO2 (CARBON DIOXIDE) 23 MMOL/L (24-34); CREATININE 0.66 MG/DL (0.55-1.02); GFR AFRICAN AMERICAN 99 ML/MIN (>=60); GFR NON AFRICAN AMERICAN 86 ML/MIN (>=60); GLUCOSE, SERUM 97 MG/DL (60-99); POTASSIUM, SERUM 3.7 MMOL/L (3.5-5.3); SODIUM, SERUM 145 MMOL/L (135-148)
[2016-11-02 05:36] LABS: CALCIUM, SERUM 9.4 MG/DL (8.5-10.4)
[2016-11-02 05:41] LABS: MANUAL DIFF NO %
[2016-11-03] MEDS ORDERED: AZACT2 IM (15:36)
[2016-11-03] MEDS ORDERED: MULTIPLE VIT PO (15:42)
[2016-11-03] MEDS ORDERED: SODBICAR10 PO (15:44)
[2016-11-03] MEDS ORDERED: VFEND200 PO (15:46)
[2016-11-03] MEDS ORDERED: ALBUTEROL0.083 % INH (15:47)
[2016-12-31] MEDS ORDERED: ZOFRAN4 PO (15:17)
[2016-12-31] MEDS ORDERED: PROTONIX PO (15:18)
[2016-12-31] MEDS ORDERED: COZ50 PO (15:23)
== END 2016-11-03 16:56 | disposition home health service (06) | DRG 205 ==
LOC: ER 15:46 → MIC 19:40 → 1SO 10-31 10:46
PROVIDERS: Emergency Medicine; Internal Medicine; Internal Medicine Pulmonary Disease
PROC: 0B938ZX Drainage of Right Main Bronchus, Via Natural or Artificial Opening Endoscopic, Diagnostic (ICD-10-PCS; principal; 2016-10-30 09:35)
PROC: 0BB38ZX Excision of Right Main Bronchus, Via Natural or Artificial Opening Endoscopic, Diagnostic (ICD-10-PCS; 2016-10-30 09:35)
PROC: 0BC38ZZ Extirpation of Matter from Right Main Bronchus, Via Natural or Artificial Opening Endoscopic (ICD-10-PCS; 2016-10-30 09:35)
PROC: 0B738DZ Dilation of Right Main Bronchus with Intraluminal Device, Via Natural or Artificial Opening Endoscopic (ICD-10-PCS; 2016-10-30 09:35)
PROC: 02HV33Z Insertion of Infusion Device into Superior Vena Cava, Percutaneous Approach (ICD-10-PCS; 2016-11-03)
PROC: 4A02X4A Measurement of Cardiac Electrical Activity, Guidance, External Approach (ICD-10-PCS; 2016-11-03)
DX: J95.89 Other postprocedural complications and disorders of respiratory system, not elsewhere classified (principal); J96.01 Acute respiratory failure with hypoxia; I11.0 Hypertensive heart disease with heart failure; J18.9 Pneumonia, unspecified organism; E87.2 Acidosis; J44.0 Chronic obstructive pulmonary disease with (acute) lower respiratory infection; J44.9 Chronic obstructive pulmonary disease, unspecified; I50.9 Heart failure, unspecified; J98.11 Atelectasis; I73.9 Peripheral vascular disease, unspecified; I25.10 Atherosclerotic heart disease of native coronary artery without angina pectoris; K44.9 Diaphragmatic hernia without obstruction or gangrene; F32.9 Major depressive disorder, single episode, unspecified; F41.9 Anxiety disorder, unspecified; E03.9 Hypothyroidism, unspecified; G43.909 Migraine, unspecified, not intractable, without status migrainosus; E78.5 Hyperlipidemia, unspecified; B96.5 Pseudomonas (aeruginosa) (mallei) (pseudomallei) as the cause of diseases classified elsewhere; J98.09 Other diseases of bronchus, not elsewhere classified; Y83.8 Other surgical procedures as the cause of abnormal reaction of the patient, or of later complication, without mention of misadventure at the time of the procedure; G25.81 Restless legs syndrome; K21.9 Gastro-esophageal reflux disease without esophagitis; K59.00 Constipation, unspecified; Z79.82 Long term (current) use of aspirin; Z79.891 Long term (current) use of opiate analgesic; Z79.899 Other long term (current) drug therapy; Z87.891 Personal history of nicotine dependence; I25.2 Old myocardial infarction; Z85.118 Personal history of other malignant neoplasm of bronchus and lung; Z90.2 Acquired absence of lung [part of]; Z88.1 Allergy status to other antibiotic agents; Z88.8 Allergy status to other drugs, medicaments and biological substances; Z88.5 Allergy status to narcotic agent
CPT/HCPCS: 36569; 36600; 71010; 71260; 80048; 80053; 80076; 82805; 83735; 83880; 84100; 84145; 84436; 84443; 84484; 85025; 85610; 85730; 87015; 87070; 87077; 87101; 87102; 87116; 87186; 87205; 87641; 88112; 88305; 88312; 89051; 93005; 94640; 94660; 96365; 96366; 96375; 97161-GP; 99291; A9270-GY; C1726; C1751; C1757; G8978-CJ-GP; G8979-CJ-GP; G8980-CJ-GP; J0330; J2250; J2405; J2710; J2920; J2930; J3010; J3370; J3465; Q9967